=== PATIENT | male | born 1965 | race Hispanic/Latino ===

== ENCOUNTER 2018-10-31 09:02 | Outpatient (CLI) | payer MEDICAID | END 2018-10-31 09:03 | disposition home or self-care (01) | LOC: C.CTH 09:02 ==

== ENCOUNTER 2018-12-01 09:28 | Inpatient (IN) | payer MEDICAID ==
[2018-12-01 09:54] VITALS: BMI 24.9
--- NOTE | 2018-12-01 10:55 | C.PDOC ---
History Of Present Illness 53 y/o male presents to the ER requesting detox from ETOH. Patient states that he usually drinks vodka. Patient reports that his last use was at 4 am. He usually has withdrawal symptoms 24 hours after drinking. He vomits "blood." He had a seizure 1 week ago and he did not seek medical attention at the time. He notes that he called to request detox for his friend who is heroin addict.However, he decided to come to the ER himself.Denies having fever,chills, nausea, and vomiting. Time Seen by Provider: 12/01/18 10:07 Chief Complaint (Nursing): Substance Abuse History Per: Patient History/Exam Limitations: no limitations Past Medical History Reviewed: Historical Data, Nursing Documentation, Vital Signs Vital Signs: Last Vital Signs Temp 98.5 F 12/01/18 09:52 Pulse 96 H 12/01/18 09:52 Resp 18 12/01/18 09:52 BP 127/88 12/01/18 09:52 Pulse Ox 96 12/01/18 09:52 - Medical History PMH: Anemia, Bipolar Disorder, Depression, Hypercholesterolemia (Pt denies) Denies: Anxiety, Diabetes, Hepatitis, HIV, HTN, Chronic Kidney Disease, Seizures, Sexually Transmitted Disease Surgical History: Endoscopy - [facility] ALCOHOL DETOXIFICATION (05/19/14) DETOXIFICATION SERVICES FOR SUBSTANCE ABUSE TREATMENT (04/09/17) ESOPHAGOGASTRODUODENOSCOPY [EGD] W/CLOSED BIOPSY (06/07/12) GROUP PLAN EXAMINER FOR SUBSTANCE ABUSE TREATMENT, PSYCHOEDUCATION (11/15/15) INFLUENZA VACCINATION (06/07/12) INJECT/INFUSE NEC (04/10/14) MEDICATION MANAGEMENT (04/09/17) VACCINATION NEC (06/07/12) Family History: States: No Known Family Hx - Social History Hx Tobacco Use: No Hx Alcohol Use: Yes Hx Substance Use: No - Immunization History Hx Tetanus Toxoid Vaccination: Yes Hx Influenza Vaccination: Yes Hx Pneumococcal Vaccination: Yes Review Of Systems Except As Marked, All Systems Reviewed And Found Negative. Constitutional: Negative for: Fever, Chills Cardiovascular: Negative for: Chest Pain Respiratory: Negative for: Shortness of Breath Gastrointestinal: Negative for: Nausea, Vomiting Physical Exam - Physical Exam Appears: No Acute Distress Skin: Normal Color, Warm, Dry Head: Atraumatic, Normacephalic Eye(s): bilateral: Normal Inspection Nose: Normal Oral Mucosa: Moist Neck: Supple Chest: Symmetrical Cardiovascular: Rhythm Regular Respiratory: Normal Breath Sounds, No Rales, No Rhonchi, No Wheezing Gastrointestinal/Abdominal: Normal Exam, Soft, No Tenderness, No Guarding, No Rebound Extremity: Normal ROM, Other (no pitting edema) Neurological/Psych: Oriented x3, Normal Speech ED Course And Treatment - Laboratory Results Result Diagrams: 12/01/18 12:05 12/01/18 12:05 O2 Sat by Pulse Oximetry: 96 (RA) Pulse Ox Interpretation: Normal Medical Decision Making Medical Decision Making: Plan: --Labs --UA --CRISIS Evaluation Disposition - Disposition Disposition: HOSPITALIZED Disposition Time: 12:56 Condition: GUARDED Forms: [facility] (Hebrew) - POA Present On Arrival: None - Clinical Impression Clinical Impression: Bipolar II disorder, Alcohol abuse - Scribe Statement The provider has reviewed the documentation as recorded by the Hayderibe Caro Hong Provider Attestation: All medical record entries made by the Scribe were at my direction and personally dictated by me. I have reviewed the chart and agree that the record accurately reflects my personal performance of the history, physical exam, medical decision making, and the department course for this patient. I have also personally directed, reviewed, and agree with the discharge instructions and disposition. Decision To Admit - Pt Status Changed To: Hospital Disposition Of: Observation - . Bed Request Type: Detox Admitting Physician: Ridge Rizzo Patient Diagnosis: Bipolar II disorder, Alcohol abuse
[2018-12-01 12:10] LABS: BASO # 0.1 K/uL (0.0-0.2); BASO % 1.2 % (0.0-2.0); EOS # 0.1 K/uL (0.0-0.7); EOS % 2.2 % (0.0-4.0); HEMOGLOBIN 16.2 g/dL (12.0-18.0); LYMPH # 2.2 K/uL (1.0-4.3); LYMPH % 40.5 % (20.0-40.0); MEAN CELL VOLUME 92.8 fL (80.0-94.0); MEAN CORPUSCULAR HEMOGLOBIN 32.9 pg (27.0-31.0); MEAN CORPUSCULAR HGB CONC 35.5 g/dL (33.0-37.0); MEAN PLATELET VOLUME 6.1 fL (7.2-11.7); MONO # 0.3 K/uL (0.0-0.8); MONO % 6.3 % (0.0-10.0); NEUT # 2.7 K/uL (1.8-7.0); NEUT % 49.8 % (50.0-75.0); NRBC % 0.2 % (0.0-2.0); RBC 4.93 Mil/uL (4.40-5.90); WHITE BLOOD COUNT 5.4 K/uL (4.8-10.8)
[2018-12-01 12:14] LABS: URINE BILIRUBIN NEGATIVE (NEGATIVE); URINE BLOOD NEGATIVE (NEGATIVE); URINE CLARITY Clear (Clear); URINE COLOR Yellow (YELLOW); URINE GLUCOSE (UA) NORMAL (Normal); URINE LEUKOCYTE ESTERASE NEG Leu/uL (Negative); URINE PROTEIN NEGATIVE (NEGATIVE); URINE UROBILINOGEN NORMAL mg/dL (0.2-1.0)
[2018-12-01 12:27] LABS: ALBUMIN 4.5 g/dL (3.5-5.0); ALT/SGPT 48 U/L (21-72); AST/SGOT 36 U/L (17-59); BLOOD UREA NITROGEN 14 mg/dL (9-20); CALCIUM 8.6 mg/dl (8.6-10.4); GFR NON-AFRICAN AMERICAN > 60
[2018-12-01 12:41] LABS: BARBITURATES, UR NEGATIVE (NEGATIVE); BENZODIAZEPINES, UR NEGATIVE (NEGATIVE); OPIATES, UR NEGATIVE (NEGATIVE); PHENCYCLIDINE, UR NEGATIVE (NEGATIVE)
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
[2018-12-01] MEDS: Multiple Vitamins Tab PO SCH (16:44)
[2018-12-01] MEDS ORDERED: Aluminum Hydroxide/Magnesium Hydroxide Susp (30 mL) PO ONE (18:53)
--- NOTE | 2018-12-01 19:52 | PCM.BM ---
<UzielCaroline - Last Filed: 12/01/18 19:50> Treatment Plan Problems - Problems identified on initial assessmt Anxiety Related to Substance Use Date Initiated: 12/01/18 Time Initiated: 19:51 Assessment reference: NA Status: Active Abnormal Vital Signs Date Initiated: 12/01/18 Time Initiated: 19:51 Assessment reference: NA Status: Active Knowledge Deficit: Alcohol Use Date Initiated: 12/01/18 Time Initiated: 19:51 Assessment reference: NA Status: Active Treatment assets and liabiliti Patient Assests: cooperative, ADL independent, negotiates basic needs, cognitively intact Patient Liabilities: substance abuse - Milieu Protocol Maintain good personal hygiene: daily Encourage regular showers, daily Remind patient to perform daily oral care, daily Assist patient to perform ADL's Conduct patient checks and document Observation sheet: Q15 minutes Maintain personal safety: every shift Educate patient to report safety concerns to staff, every shift Monitor environment for contraband/sharps Medication safety: Monitor for expected outcome, potential side effects: every shift, Assess barriers to learning: every shift, Assess readiness for medication education: every shift <Ridge Rizzo - Last Filed: 12/02/18 21:18> - Diagnosis (1) Alcohol dependence Status: Chronic Interventions: 12/02/18 21:18 * Assess 7x/week regarding severity of withdrawal * Educate regarding risks, benefits, side effects and alternatives of medications * Use Motivational Interviewing for abstinence * Use CBT for relapse prevention * Medication management for withdrawal symptoms * Encourage medication assisted treatment * (2) Depression Status: Chronic Interventions: 12/02/18 21:19 * Assess/adjust medications daily and /or as needed * See patient on an individual basis 7x/week to assess symptoms of depression * Monitor for side effects & effectiveness of medications * <nAika Batres - Last Filed: 12/03/18 14:55> Family Contact Family involvement: Famliy/SO not involved - Goals for Treatment Patient goals for treatment: Complete detox and resume AA meetings. Discharge/Continuing Care - Education Needs Education Needs: Patient Medication, Patient Diagnosis/Disease Process, Patient Coping Skills, Patient Anger Management skills, Patient Placement options, Patient Community resources - Discharge Discharge Criteria: No longer exhibiting s/s of withdrawal, Reduction of target symptoms Discharge to:: Home - Treatment Team Participation Patient/Family/SO Statement: 12/03/18 14:55 "I need to go back to my meetings..." Discussed with Family/SO: No Was Patient/Family/SO present at Treatment Team Meeting: Yes
[2018-12-02] MEDS: Multiple Vitamins Tab PO SCH (09:13)
[2018-12-02] MEDS: Fluticasone Nasal 50 mcg/Spray NS SCH ×2 (09:21→11:29)
--- NOTE | 2018-12-02 14:23 | PCM.PYCHPN ---
Psychiatric Progress Note - Psychiatric Progress Note Patient seen today, length of contact: 16 min Patient Chief Complaint: "Very anxious" Problems Identified/Issues Discussed: The pt is seen, chart reviewed, case is discussed with staff. The pt is compliant with medications and reports no side-effects. Symptoms are improving but needs more time to stabilize and to avoid relapse. Still anxious, shaky Pt attends groups and activities. Support given, psycho-education provided. After care discussed. Plans to go to only regretfully. He tried the IOP in his town but didn't like it, doesn't want rehab Topamax will be started for now for cravings. Liver is bad for naltrexone. Medication Change: Yes (detox changes daily) Medical Record Reviewed: Yes Mental Status Examination - Cognitive Function Orientation: Person, Place, Situation, Time Memory: Intact Attention: WNL Concentration: Poor Association: WNL Fund of Knowledge: WNL - Mood Mood: Depressed, Anxious - Affect Affect: Constricted - Speech Speech: Appropriate - Formal Thought Process Formal Thought Process: No Impairment - Suicidal Ideation Suicidal Ideation: No - Homicidal Ideation Homicidal Ideation: No Goal/Treatment Plan - Goal/Treatment Plan Need for Continued Stay: Discharge may exacerbated symptoms, Severe functional impairment Progress Toward Problem(s) and Goals/Treatment Plan: Continue medications for deox and mood Support and psychoeducation daily Attend groups and activities daily Individual therapy After care planning by counselors [place] for abstinence Estimated Date of D/C: 12/05/18
[2018-12-03] MEDS: Multiple Vitamins Tab PO SCH (09:15)
[2018-12-03] MEDS: Fluticasone Nasal 50 mcg/Spray NS SCH (09:16)
[2018-12-04] MEDS: Fluticasone Nasal 50 mcg/Spray NS SCH (09:28)
[2018-12-04] MEDS: Multiple Vitamins Tab PO SCH (09:28)
[2018-12-05 06:45] VITALS: BP 134/88; PULSE 89; RESP 20; TEMP 97.4; O2SAT 98
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
== END 2018-12-05 08:00 | disposition home or self-care (01) | DRG 750 ==
LOC: C.ER 09:28 → C.7D 12:57 → OBSVTOIN 21:18
PROVIDERS: ADMIT Psychiatry & Neurology Psychiatry; ATTEND Psychiatry & Neurology Psychiatry
PROC: HZ2ZZZZ Detoxification Services for Substance Abuse Treatment (ICD-10-PCS; principal; 2018-12-01)
PROC: HZ59ZZZ Individual Psychotherapy for Substance Abuse Treatment, Supportive (ICD-10-PCS; 2018-12-01)
PROC: HZ46ZZZ Group Counseling for Substance Abuse Treatment, Psychoeducation (ICD-10-PCS; 2018-12-01)
PROC: GZ3ZZZZ Medication Management (ICD-10-PCS; 2018-12-01)
DX: F10.230 Alcohol dependence with withdrawal, uncomplicated (principal); R56.9 Unspecified convulsions; Y90.7 Blood alcohol level of 200-239 mg/100 ml; F31.81 Bipolar II disorder; F43.10 Post-traumatic stress disorder, unspecified; F41.1 Generalized anxiety disorder; I10 Essential (primary) hypertension; K21.9 Gastro-esophageal reflux disease without esophagitis; R09.82 Postnasal drip; J34.2 Deviated nasal septum; Z80.1 Family history of malignant neoplasm of trachea, bronchus and lung; Z83.3 Family history of diabetes mellitus

== ENCOUNTER 2018-12-15 06:04 | Day surgery (SDC) | payer MEDICAID ==
[2018-12-15] MEDS ORDERED: Acetaminophen-Codeine 300/30 mg Tab PO PRN (08:17)
[2018-12-15] MEDS ORDERED: Dextrose 5%/0.45% NS 1,000 ML IV SCH (08:30)
[2018-12-15] MEDS ORDERED: Midazolam 2 MG/2 ML VIAL ONE (08:33)
[2018-12-15] MEDS ORDERED: Propofol 10 mg/ml Inj (20 ML) ONE (08:33)
[2018-12-15] MEDS ORDERED: EPINEPHrine 1:1000 Nasal Sol(30mL) ONE (08:54)
[2018-12-15] MEDS ORDERED: Lidocaine/Epinephrine 1% 1:100000 10 ML IJ ONE (08:54)
[2018-12-15] MEDS ORDERED: ceFAZolin 1 gm in NS 1 GM/100 ML BAG IVPB ONE (08:54)
[2018-12-15] MEDS ORDERED: HYDROmorphone 0.5 mg/0.5 ml ISec IVP PRN (10:52)
[2018-12-15 12:40] VITALS: BP 177/90; PULSE 72; RESP 18; TEMP 98; O2SAT 100
--- NOTE | 2018-12-15 20:17 | OP ---
PROCEDURE DATE: 12/15/2018 PREOPERATIVE DIAGNOSES: Sinusitis, deviated septum, large turbinates. POSTOPERATIVE DIAGNOSES: Sinusitis, deviated septum, large turbinates. PROCEDURES: Septoplasty, endoscopic bilateral maxillary antrostomy, endoscopic bilateral ethmoidectomy, endoscopic bilateral frontal sinusotomy and endoscopic bilateral inferior turbinate reduction. SIGNIFICANT FINDINGS: Deviated septum, large turbinates. Maxillary antrum stenosed on both sides. Frontal recess stenosed on both sides and sinusitis changes noted of the ethmoid sinuses. DESCRIPTION OF PROCEDURE: The patient was brought into room, placed in supine position. Anesthesia initiated through an ET tube. The patient was draped in usual manner. Navigation was set up and used throughout the case in order to ensure that the skull base and orbit were not entered. Adrenaline-soaked pledgets were inserted into the cavity, remained there 5 minutes and then removed. The septum was injected with lidocaine with epinephrine on both sides. Rip incision was made on the left and then mucoperichondrial flap was raised. A vertical incision was made in the cartilage leaving 1.5 cm anterior and superior strut and mucoperichondrial flap was raised on the other side. Deviated portion of the bone and cartilage removed using chisel and forceps. A quilting suture was used to suture the two flaps together and close the Rip incision. A 0-degree scope was then inserted into the nasal cavity. The inferior turbinates were noted to be enlarged and reduced in size first on the left and then on the right using scissors going from inferior to superior anterior-posterior direction. Bleeding was controlled on both sides using suction cautery. Attention was turned to left. The middle turbinate was injected with lidocaine with epinephrine and medialized. The uncinate process was medialized and removed. The ethmoid bulla was entered using a debrider going inferomedially posteriorly to the basal lamella, then anterior and superiorly until the ethmoid bulla was removed. The basal lamella was entered. The posterior ethmoid cells were entered and opened. Skull base was identified and followed anteriorly all the way to the area of the anterior ethmoid air cells. Frontal recess was noted to be stenosed and opened using forceps. Curved suction hooked up to navigation was used to locate the maxillary antrum which was noted to be stenosed and opened using forceps. Attention was turned to the other side. The middle turbinate was injected with lidocaine with epinephrine and medialized. The uncinate process was medialized using a [place] elevator and removed using forceps. Debrider was used to enter the ethmoid bulla inferomedially going posteriorly to the basal lamella anterior and superiorly until the ethmoid bulla was removed. The basal lamella was entered. Posterior ethmoid cells were entered and opened. The skull base was identified and followed anteriorly all the way to the area of anterior ethmoid air cells and the frontal recess was noted to be stenosed and opened using forceps. The curved suction was used to locate the maxillary antrum which was noted to be stenosed and opened using forceps. Bleeding was controlled on both sides using adrenaline-soaked pledgets and suction cautery. Splints were placed. Stents were placed. The patient was taken off anesthesia and taken to recovery room in stable manner. Alexander Chester MD
== END 2018-12-15 14:24 | disposition home or self-care (01) ==
LOC: C.SDS 06:04
PROVIDERS: ATTEND Otolaryngology
DX: J34.2 Deviated nasal septum (principal); J34.3 Hypertrophy of nasal turbinates; J32.0 Chronic maxillary sinusitis; J32.9 Chronic sinusitis, unspecified
CPT/HCPCS: 30140; 30520; 88304; 88311; J0131; J0690; J1100; J1170; J2250; J2405; J2704; J3010